=== PATIENT | male | born 1940 | race Caucasian/White ===

== ENCOUNTER 2022-08-19 10:51 | Outpatient (CLI) | payer MEDICARE, SELFPAY ==
[2022-08-19 14:20] LABS: Kit Draw Collected
== END 2022-08-19 10:52 | disposition home or self-care (01) ==
LOC: ANHGOSHLAB 10:53
PROVIDERS: PCP Family Medicine; Visit Provider Family Medicine
DX: I10 Essential (primary) hypertension (principal); R73.9 Hyperglycemia, unspecified
CPT/HCPCS: 36415

== ENCOUNTER 2023-02-24 10:15 | Outpatient (CLI) | payer MEDICARE, SELFPAY ==
[2023-02-24 18:38] LABS: Basophils Absolute Auto 0.1 K/mm3 (0.0-0.1); Eosinophils Absolute Auto 0.7 K/mm3 (0-0.3); Eosinophils Percent Auto 8.3 % (0-4.4); Hematocrit 41.4 % (42.0-52.0); Hemoglobin 13.1 g/dL (14.0-18.0); Immature Granulocyte Absolute 0.03 K/mm3 (0.00-0.031); Immature Granulocyte Percent A 0.4 % (0-0.5); Lymphocytes Absolute Auto 2.41 K/mm3 (0.9-3.2); Lymphocytes Percent Auto 30.7 % (18.3-44.2); Mean Corpuscular HGB Conc 31.6 g/dl (32-36); Mean Corpuscular Hemoglobin 31.6 pg (26-34); Mean Corpuscular Volume 99.8 fl (80-100); Mean Platelet Volume 9.4 fl (7.4-10.4); Monocytes Absolute Auto 0.7 K/mm3 (0.1-0.6); Neutrophils Percent Auto 50.6 % (45.5-73.1); Platelet Count Result 234 k/mm3 (150-375); Red Blood Count 4.15 M/mm3 (4.6-6.20); Red Cell Distribution Width 12.6 % (11.5-14.5); White Blood Count 7.9 K/mm3 (4.5-10.0)
[2023-02-24 19:14] LABS: Alanine Aminotransferase 18 U/L (6-50); Albumin Level 4.1 g/dL (3.5-5.1); Alkaline Phosphatase 75 U/L (38-126); Anion Gap 9 mmol/L (8-16); Aspartate Amino Transferase 39 U/L (17-59); Bilirubin,Total 0.8 mg/dL (0.2-1.3); Blood Urea Nitrogen 21 mg/dL (9-20); Calcium 8.8 mg/dL (8.4-10.2); Carbon Dioxide 30 mmol/L (22-30); Chloride 102 mmol/L (98-107); Cholesterol 157 mg/dL (0-200); Estimated Glomerular Filt Rate 45; Glucose 106 mg/dL (65-110); HDL Direct 38 mg/dL; Potassium 4.1 mmol/L (3.4-5.0); Sodium 141 mmol/L (137-145); Triglycerides 93 mg/dL (<150)
[2023-02-24 19:25] LABS: LDL Cholesterol Direct 91 mg/dL
[2023-02-24 19:44] LABS: Prostate Specific Antigen 3.2 ng/mL (< OR = 4.0)
[2023-02-24 20:11] LABS: Vitamin D 25 Hydroxy 53.7 ng/mL
[2023-02-24 20:46] LABS: Hemoglobin A1C 5.2 % (<5.7)
== END 2023-02-24 10:16 | disposition home or self-care (01) ==
LOC: ANHGOSHLAB 10:16
PROVIDERS: PCP Family Medicine; Visit Provider Family Medicine
DX: Z12.5 Encounter for screening for malignant neoplasm of prostate (principal); R73.9 Hyperglycemia, unspecified; E78.5 Hyperlipidemia, unspecified; E55.9 Vitamin D deficiency, unspecified; E53.8 Deficiency of other specified B group vitamins; I48.20 Chronic atrial fibrillation, unspecified; I10 Essential (primary) hypertension
CPT/HCPCS: 36415; 80053; 80061; 82306; 82607; 83036; 84153; 84443; 85025; G0103

== ENCOUNTER 2023-08-18 10:05 | Outpatient (CLI) | payer MEDICARE, SELFPAY ==
[2023-08-18 12:19] LABS: Basophils Absolute Auto 0.1 K/mm3 (0.0-0.1); Basophils Percent Auto 0.8 % (0.2-1.2); Eosinophils Absolute Auto 0.7 K/mm3 (0-0.3); Eosinophils Percent Auto 8.1 % (0-4.4); Hematocrit 42.7 % (42.0-52.0); Hemoglobin 13.4 g/dL (14.0-18.0); Immature Granulocyte Absolute 0.03 K/mm3 (0.00-0.031); Immature Granulocyte Percent A 0.4 % (0-0.5); Lymphocytes Absolute Auto 2.26 K/mm3 (0.9-3.2); Lymphocytes Percent Auto 27.2 % (18.3-44.2); Mean Corpuscular HGB Conc 31.4 g/dl (32-36); Mean Corpuscular Hemoglobin 31.2 pg (26-34); Mean Corpuscular Volume 99.3 fl (80-100); Mean Platelet Volume 9.3 fl (7.4-10.4); Monocytes Absolute Auto 0.8 K/mm3 (0.1-0.6); Neutrophils Absolute Auto 4.5 K/mm3 (1.3-6.7); Neutrophils Percent Auto 53.5 % (45.5-73.1); Platelet Count Result 234 k/mm3 (150-375); White Blood Count 8.3 K/mm3 (4.5-10.0)
[2023-08-18 12:29] LABS: Alanine Aminotransferase 14 U/L (6-50); Albumin Level 4.1 g/dL (3.5-5.1); Alkaline Phosphatase 88 U/L (38-126); Anion Gap 3 mmol/L (4-12); Aspartate Amino Transferase 61 U/L (17-59); Bilirubin,Total 0.9 mg/dL (0.2-1.3); Blood Urea Nitrogen 24 mg/dL (9-20); Calcium 9.4 mg/dL (8.4-10.2); Carbon Dioxide 32 mmol/L (22-30); Chloride 105 mmol/L (98-107); Estimated Glomerular Filt Rate 48; Glucose 100 mg/dL (65-110); Potassium 4.1 mmol/L (3.4-5.0); Sodium 140 mmol/L (137-145)
== END 2023-08-18 10:06 | disposition home or self-care (01) ==
LOC: ANHGOSHLAB 10:07
PROVIDERS: PCP Family Medicine; Visit Provider Family Medicine
DX: I50.32 Chronic diastolic (congestive) heart failure (principal); I48.20 Chronic atrial fibrillation, unspecified; E78.5 Hyperlipidemia, unspecified; I10 Essential (primary) hypertension; N18.31 Chronic kidney disease, stage 3a; Z79.899 Other long term (current) drug therapy
CPT/HCPCS: 36415; 80053; 85025

== ENCOUNTER 2024-02-29 13:46 | Outpatient (CLI) | payer MEDICARE, SELFPAY ==
[2024-02-29 19:25] LABS: Basophils Absolute Auto 0.1 K/mm3 (0.0-0.1); Basophils Percent Auto 0.7 % (0.2-1.2); Eosinophils Absolute Auto 0.6 K/mm3 (0-0.3); Eosinophils Percent Auto 5.8 % (0-4.4); Hematocrit 43.5 % (42.0-52.0); Hemoglobin 14.1 g/dL (14.0-18.0); Immature Granulocyte Absolute 0.02 K/mm3 (0.00-0.031); Immature Granulocyte Percent A 0.2 % (0-0.5); Lymphocytes Absolute Auto 2.66 K/mm3 (0.9-3.2); Lymphocytes Percent Auto 28.3 % (18.3-44.2); Mean Corpuscular HGB Conc 32.4 g/dl (32-36); Mean Corpuscular Volume 98.6 fl (80-100); Mean Platelet Volume 9.3 fl (7.4-10.4); Monocytes Absolute Auto 0.7 K/mm3 (0.1-0.6); Monocytes Percent Auto 7.9 % (2.6-8.5); Neutrophils Absolute Auto 5.4 K/mm3 (1.3-6.7); Neutrophils Percent Auto 57.1 % (45.5-73.1); Platelet Count Result 279 k/mm3 (150-375); Red Blood Count 4.41 M/mm3 (4.6-6.20); Red Cell Distribution Width 12.5 % (11.5-14.5); White Blood Count 9.4 K/mm3 (4.5-10.0)
[2024-02-29 20:00] LABS: Alanine Aminotransferase 15 U/L (6-50); Albumin Level 4.5 g/dL (3.5-5.1); Alkaline Phosphatase 90 U/L (38-126); Anion Gap 9 mmol/L (4-12); Aspartate Amino Transferase 37 U/L (17-59); Bilirubin,Total 0.8 mg/dL (0.2-1.3); Blood Urea Nitrogen 32 mg/dL (9-20); Calcium 9.8 mg/dL (8.4-10.2); Carbon Dioxide 27 mmol/L (22-30); Chloride 104 mmol/L (98-107); Cholesterol 153 mg/dL (0-200); Estimated Glomerular Filt Rate 41; Glucose 97 mg/dL (65-110); HDL Direct 37 mg/dL; Potassium 4.5 mmol/L (3.4-5.0); Sodium 140 mmol/L (137-145); Triglycerides 108 mg/dL (<150)
[2024-02-29 20:12] LABS: LDL Cholesterol Direct 75 mg/dL
[2024-02-29 20:29] LABS: Prostate Specific Antigen 4.8 ng/mL (< OR = 4.0)
== END 2024-02-29 13:47 | disposition home or self-care (01) ==
LOC: ANHGOSHLAB 13:47
PROVIDERS: PCP Family Medicine; Visit Provider Nurse Practitioner Family
DX: E78.5 Hyperlipidemia, unspecified (principal); I10 Essential (primary) hypertension; Z12.5 Encounter for screening for malignant neoplasm of prostate
CPT/HCPCS: 36415; 80053; 80061; 84153; 84443; 85025; G0103

== ENCOUNTER 2024-08-30 11:51 | Outpatient (CLI) | payer MEDICARE, SELFPAY ==
--- OUTSIDE RECORDS SUMMARY | 2024-08-30 13:10 | XMS_ITS | Referral Summary ---
Author Organization [facility] [place] [address] Address [address] [place] [address] Care Team Providers Care Cook Fish Eggs Name Role Phone Justino Sim MD Unavailable Miscellaneous, Not In File Unavailable Unava Kuldip Miller MD Primary Care Provider Encounters Date Type Department Care Team Description 06/05/2024 1:15 PM FISH BAILER Ancillary Procedure [facility] [address] [place] [id number] Biventricular ICD (implantable cardioverter-defibrill ator) in place (Primary Dx); Cardiomyopathy, dilated (HCC) from Last 3 Months Allergies No known active allergies Medications pravastatin (PRAVACHOL) 40 mg tablet take 1 tablet by oral route every day 0 0 5 Active multivitamin tabletIndications:Vi tamin Deficiency Prevention Take 1 tablet by mouth daily Active cholecalciferol (VITAMIN D-3) 2000 unit capsule 1 capsule (2,000 Units total) Active metoprolol tartrate (LOPRESSOR) 25 mg immediate release tabletIndications:Ch ronic atrial fibrillation (HCC) Take 0.5 tablets (12.5 mg total) by mouth 2 (two) times a day 90 tablet 3 4 Active sacubitriL-valsartan (Entresto) 49-51 mg tabletIndications:Ca rdiomyopathy, dilated (HCC) Take 1 tablet by mouth 2 (two) times a day 60 tablet 11 4 Active spironolactone (ALDACTONE) 25 mg tablet TAKE 1 TABLET BY MOUTH EVERY DAY 90 tablet 1 4 Active apixaban (Eliquis) 2.5 mg tabletIndications:Ch ronic anticoagulation TAKE 1 TABLET BY MOUTH TWICE A DAY 60 tablet 4 4 Active empagliflozin (JARDIANCE) 10 mg tablet Take 1 tablet (10 mg total) by mouth daily 90 tablet 6 5 Active Active Problems Problem Noted Date Diagnosed Date Biventricular ICD (implantab le cardioverter-defibrillator) in place 03/11/2022 Hypotension due to drugs 03/11/2022 At risk for sudden cardiac 11/03/2021 Chronic combined systolic an d diastolic CHF (congestive heart failure) 11/03/2021 Nonrheumatic mitral valve regurgitation 11/04/19 Stage 3a chronic kidney disease 11/28/2020 Bradycardia 02/12/2020 Aortic valve disease 02/12/2020 LBBB (left bundle branch block) 07/18/2019 S/P TAVR (transcatheter aortic valve replacement ) 07/17/2019 Cardiomyopathy, dilated (CMS/HCC) 07/17/2019 Aortic valve stenosis 11/30/2017 Overview (11/30/2017): Added automatically from request for surgery [id number] Persistent atrial fibrillation 11/30/2017 Overview (11/30/2017): Added automatically from request for surgery [id number] Obesity (BMI 30-39.9) 03/08/2017 Chronic anticoagulation 03/16/2016 Overview (08/20/2016): Chronic anticoagulation Obstructive sleep apnea syndrome 09/02/2015 Overview (08/20/2016): MICHAEL (obstructive sleep apnea) Multiple-type hyperlipidemia 03/01/2015 Overview (08/20/2016): Mixed hyperlipidemia Dyssomnia 03/01/2015 Overview (08/20/2016): Sleep disturbances Resolved Problems Problem Noted Date Diagnosed Date Resolved Date Nonrheumatic aortic valve stenosis 01/18/2018 11/13/2020 Nonrheumatic aortic valve stenosis 03/08/2017 03/08/2017 Sinusitis 03/16/2016 11/03/2021 Overview (08/20/2016): Allergic sinusitis Nonrheumatic aortic valve stenosis 03/01/2015 03/11/2022 Overview (08/20/2016): Nonrheumatic aortic valve stenosis Chronic atrial fibrillation 03/01/2015 09/03/2021 Overview (08/20/2016): Atrial fibrillation, chronic Morbid obesity 03/01/2015 03/08/2017 Overview (08/20/2016): Morbid obesity due to excess calories Immunizations Immunization Administration Dates Next Due Influenza, Trivalent, High D ose, Split, Preservative Free, Intramuscular 05/29/2018 Social History Tobacco Use Types Packs/Day Years Used Date Smoking Tobacco: Former Cigarettes Q uit: 03/08/1984 Smokeless Tobacco: Never Tobacco Cessation:Counseling Given: Not Answered Alcohol Use Standard Drinks/Week Comments No 0 (1 standard drink = 0.6 oz pur e alcohol) Sex and Gender Information Value Date Recorded Sex Assigned at Not on file Legal Sex Male 3:49 AM FISH BAILER Gender Identity Not on file Sexual Orientation Not on file Last Filed Vital Signs Vital Sign Reading Time Taken Comments Blood Pressure 104/58 05/24/2024 10:55 AM FISH BAILER Pulse 68 05/24/2024 10:55 AM FISH BAILER Temperature 36.3 C (97.3 F) 11/25/2021 11:00 AM CDT Respiratory Rate 16 11/19/2021 11:38 AM CDT Oxygen Saturation 96% 05/24/2024 10:55 AM FISH BAILER Inhaled Oxygen Concentration - - Weight 107.5 kg (237 lb) 05/24/2024 10:55 AM FISH BAILER Height 185.4 cm (6' 1 ) 05/24/2024 10:55 AM FISH BAILER Body Mass Index 31.27 05/24/2024 10:55 AM FISH BAILER Plan of Treatment Not on file Medical Devices Implanted Type Area Mender Hand Device Identifier Shelf Expiration Date Model / Serial / Lot [employer] Durata 7fr 65cm 2 Coil Df-4 True Bipolar Active Fixation 7120q/65 - [id number] - [id number] Implanted:Qty: 1 on 11/25/2021 by Arjun Allan MD at [facility] Lead [employer] [id number] 06/16/2024 7120Q/65 / [id number] / [employer] Quartet 5fr [id number] 4 Electrode Is-4 Connector Steerable Tip 1458q/ - [id number] - [id number] Implanted:Qty: 1 on 11/25/2021 by Arjun Allan MD at [facility] Lead [employer] [id number] 10/14/2024 1458Q/ / [id number] / Medtronic Inc Zyfhrpt-31-Pz Corevalve Evolut R Self Expand Multilevel Transcatheter 34mm Latex Free - [id number] - [id number] Implanted:Qty: 1 on 05/27/2018 by Justino Sim MD at [facility] Med[employer]onic Inc [id number] 10/05/2019 EVOLUTR -34 -US / [id number] / Daig Pelon/[employer] [id number] Angio-Seal Vip Bondek-Plus 8fr .038in 70cm Hemostatic Latex Free - [id number] Implanted:Qty: 1 on 05/27/2018 by Justino Sim MD at [facility] Daig Pelon/[employer] 11/13/2018 [id number] / / [id number] Daig Pelon/[employer] [id number] Angio-Seal Vip Bondek-Plus 6fr .035in 70cm Hemostatic Latex Free - [id number] Implanted:Qty: 1 on 05/27/2018 by Justino Sim MD at [facility] Daig Pelon/[employer] 02/13/2019 [id number] / / [id number] Sharp Vascular Defib Cardiac [id number] [id number] [place] Hf Df4 Is-4 Is-1 Cnctr [id number] - [id number] - [id number] Implanted:Qty: 1 on 11/25/2021 by Arjun Allan MD at [facility] [employer] Vascular [id number] 10/15/2023 C [id number] / [id number] / Procedures Procedure Name Priority Date/Time Associated Diagnosis Comments DEVICE CHECK - REMOTE Routine 06/05/2024 10:19 AM FISH BAILER Cardiomyopathy, dilated (HCC) from Last 3 Months Results * DEVICE CHECK - REMOTE (06/05/2024 10:19 AM FISH BAILER) Anatomical Region Laterality Modality Other Narrative 06/12/2024 7:55 AM FISH BAILER Table formatting from the original result was not included. BiV ICD CHECK (REMOTE) Patient ID: Daniel Villalobos is a 83 y.o. male. This patient received a Sharp BiV ICD. They had a routine remote transmission on 06/05/2024 Device implant indications: Nonischemic dilated cardiomyopathy Interrogation of the patient's device demonstrates the following: Presenting EGM: Bi V paced with trigger pacing @ 70 bpm Original Device Settings Right Ventricle Left Ventricle Sensitivity (mV) Auto mV N/A mV Pacing Outputs 1.875 V @ 0.5 ms 1.875 V @ 1.0 ms Testing Measurements Right Ventricle Left Ventricle Sensitivity (mV) Greater than 12 mV Not done mV Impedence (Ohms) 380 ohms 410 ohms Pace Threshold 0.875 V @ 0.5 ms 1.375 V @ 1.0 ms Pacing % 87 % 87 % HV Lead Impedance 43 ohms N/A Trigger pacing is at 13% for total Bi V pacing of 100% Battery Status: 4.6 years to KARTIK, charge time 9.1 seconds. Episodes last 90 days/Comments: There were no ventricular high rate episodes noted on today's remote interrogation. NORMAL DEVICE FUNCTION PROGRAMMED MEDICATIONS: Anti-coagulant(s): Eliquis 2.5 mg twice daily Anti-arrhythmic(s): Lopressor 12.5 mg twice daily PLAN: 1) Sharp BiV ICD evaluation 2) Sharp remote transmission scheduled in 3 months. 3) Programming appropriate for device settings Louie Alex, RN Blaine Husain III, MD CV CARDIAC SERVICES PROCEDURES Final Result from Last 3 Months Insurance AETNA MEDICARE GOLD MEDICARE RESEARCH AETNA MEDICARE [facility]OLD [facility] G[facility] AETNA MEDICARE GOLD Care Teams Cook Fish Eggs Relationship Specialty Start Date End Date Kuldip Aviles MD [facility] [address] [place] [address] PCP - General Family Practice 10/05/23 Justino Sim MD [address] [place] [address] Secretarial Teacher Cardiology 02/23/18 Miscellaneous, Not In File 11/25/21
--- OUTSIDE RECORDS SUMMARY | 2024-08-30 13:10 | XMS_ITS | Encounter Summary ---
Author Organization [facility] Address [address] [place] [address] Care Team Providers Care Fire Engine Operator Name Role Phone Justino Sim MD Unavailable Miscellaneous, Not In File Unavailable Unava ilable Kuldip Aviles MD Primary Care Provider Encounter Details Date Type Department Care Team (Late st Contact Info) Description 08/18/2023 Orders Only [facility] [place] Health Information Management [address] [place] [id number] Scanning, Provider Social History Tobacco Use Types Packs/Day Years Used Date Smoking Tobacco: Former Cigarettes Q uit: 03/08/1984 Smokeless Tobacco: Never Alcohol Use Standard Drinks/Week Comments No 0 (1 standard drink = 0.6 oz pur e alcohol) Sex and Gender Information Value Date Recorded Sex Assigned at Not on file Legal Sex Male 3:49 AM DATA OFFICER Gender Identity Not on file Sexual Orientation Not on file documented as of this encounter Plan of Treatment Not on file documented as of this encounter Procedures Procedure Name Priority Date/Time Associated Diagnosis Comments SCAN - LABS 08/18/2023 documented in this encounter Results * SCAN - LABS (08/18/2023) us Provider Scanning Final Result documented in this encounter Visit Diagnoses Not on filedocumented in this encounter Care Teams Fire Engine Operator Relationship Specialty Start Date End Date Kuldip Aviles MD [address] [facility] [address] [place] [address] PCP - General Family Practice 10/05/23 Justino Sim MD [address] [facility] [address] [place] [id number] City Administrator Cardiology 02/23/18 Miscellaneous, Not In File 11/25/21 documented as of this encounter
--- OUTSIDE RECORDS SUMMARY | 2024-08-30 13:10 | XMS_ITS | Encounter Summary ---
Author Organization [facility] Healthcare Address [address] [place] [address] Care Team Providers Care Call Center Nurse Name Role Phone Kody Bartholomew RN Unavailable Unavailab Justino Brandon MD Unavailable Miscellaneous, Not In File Unavailable Unava ilable Kuldip Aviles MD Primary Care Provider Encounter Details Date Type Department Care Team (Latest Contact Info) Description 03/02/2018 Documentation Cardiology Kody Bartholomew RN Social History Tobacco Use Types Packs/Day Years Used Date Smoking Tobacco: Former Cigarettes Q uit: 03/08/1984 Smokeless Tobacco: Never Alcohol Use Standard Drinks/Week Comments Yes 0 (1 standard drink = 0.6 oz pur e alcohol) occasionally Sex and Gender Information Value Date Recorded Sex Assigned at Not on file Legal Sex Male 3:49 AM CRITICAL POWER TECHNICIAN Gender Identity Not on file Sexual Orientation Not on file documented as of this encounter Plan of Treatment Not on file documented as of this encounter Visit Diagnoses Not on filedocumented in this encounter Care Teams Call Center Nurse Relationship Specialty Start Date End Date Kuldip Aviles MD [address] [facility] [address] [place] [address] PCP - General Family Practice 10/05/23 Kody Bartholomew, RN Secondary Supervisor Paper Products Cardiothoracic Surgery 10/22/17 11/25/21 Justino Sim MD [address] [facility] [address] [place] [address] Motion Picture Director Cardiology 02/23/18 Miscellaneous, Not In File 11/25/21 documented as of this encounter
--- OUTSIDE RECORDS SUMMARY | 2024-08-30 13:10 | XMS_ITS | Clinical Summary ---
Author Organization [facility] [place] [address] Address [address] [place] [address] Care Team Providers Care Temp Recruiter Name Role Phone Justino Sim MD Unavailable Miscellaneous, Not In File Unavailable Unava Kuldip Miller MD Primary Care Provider Allergies No known active allergies Medications pravastatin [...] failure) 11/03/2021 Nonrheumatic mitral valve regurgitation 11/04/19 22 Stage 3a chronic kidney disease 11/28/2020 Bradycardia 02/12/2020 Aortic valve disease 02/12/2020 LBBB (left bundle branch block) 07/18/2019 S/P TAVR (transcatheter aortic valve replacement ) 07/17/2019 Cardiomyopathy, dilated (CMS/HCC) 07/17/2019 Aortic valve stenosis 11/30/2017 Overview (11/30/2017): Added automatically from request for surgery [id number] Persistent atrial fibrillation 11/30/2017 Overview (11/30/2017): Added automatically from request for surgery [id number] Obesity (BMI 30-39.9) 03/08/2017 Chronic anticoagulation 03/16/2016 [...] (08/20/2016): Morbid obesity due to excess calories Encounters Date Type Department Care Team Description 06/05/2024 1:15 PM BIOCHEMICAL ENGINEER Ancillary Procedure Arrhythmia Center [facility] [address] [address] Biventricular ICD (implantable cardioverter-defibrill ator) in place (Primary Dx); Cardiomyopathy, dilated (HCC) from Last 3 Months Immunizations Immunization Administration Dates Next Due Influenza, Trivalent, High D ose, Split, Preservative Free, Intramuscular 05/29/2018 Surgical History Surgery Date Site/Laterality Comments HERNIA REPAIR X 2 VARICOSE VEIN SURGERY Bilateral EYE SURGERY Bilateral cataracts COLONOSCOPY TONSILLECTOMY BASAL CELL CARCINOMA EXCISION Right forearm Medical History Medical History Date Comments Sleep apnea Aortic valvar stenosis Atrial fibrillation (HCC) Cataract Arthritis Cancer (HCC) basal cell, righ t forearm Family History Medical History Relation Name Comments Lung cancer Brother 3 Cancer, lung; C ause of : Cancer, lung Heart attack Brother 4 Myocardial infa rction; Cause of : Myocardial infarction Other Father Unknown; Cause of : Unknown Heart attack Mother Myocardial infa rction; Cause of : Myocardial infarction Relation Name Status Comments Brother 1 (Age 65) Brother 2 (Age 70) Brother 3 Brother 4 Father (Age 92) Mother (Age 65) Social History Tobacco Use Types Packs/Day Years Used Date Smoking Tobacco: Former Cigarettes Q uit: 03/08/1984 Smokeless Tobacco: Never Tobacco Cessation:Counseling Given: Not Answered Alcohol Use Standard Drinks/Week Comments No 0 (1 standard drink = 0.6 oz pur e alcohol) Sex and Gender Information Value Date Recorded Sex Assigned at Not on file Legal Sex Male 3:49 AM BIOCHEMICAL ENGINEER Gender Identity Not on file Sexual Orientation Not on file Obstetrics History Last Filed Vital Signs Vital Sign Reading Time Taken Comments Blood Pressure 104/58 05/24/2024 10:55 AM BIOCHEMICAL ENGINEER Pulse 68 05/24/2024 10:55 AM BIOCHEMICAL ENGINEER Temperature 36.3 C (97.3 F) 11/25/2021 11:00 AM CDT Respiratory Rate 16 11/19/2021 11:38 AM CDT Oxygen Saturation 96% 05/24/2024 10:55 AM BIOCHEMICAL ENGINEER Inhaled Oxygen Concentration - - Weight 107.5 kg (237 lb) 05/24/2024 10:55 AM BIOCHEMICAL ENGINEER Height 185.4 cm (6' 1 ) 05/24/2024 10:55 AM BIOCHEMICAL ENGINEER Body Mass Index 31.27 05/24/2024 10:55 AM BIOCHEMICAL ENGINEER Plan of Treatment Health Maintenance Due Date Last Done Comments Depression Screening 1938 Hepatitis B Screening 1956 Zoster Vaccine (1 of 2) 1988 Well Visit 65+ 12/15/2003 Pneumococcal vaccine 65+ (2 of 2 - PCV) 01/24/2022 01/24/2021 Fall Risk Assessment 11/25/2022 11/25/2021 DTaP/Tdap/Td Vaccine (2 - Td or Tdap) 01/23/202412/2013 Influenza Vaccine Completed 01/24/2024, , 05/29/2018 Medical Devices Implanted Type Area Catalyst Concentration Operator Device Identifier Shelf Expiration Date Model / Serial / Lot [employer] Durata 7fr 65cm 2 Coil Df-4 True Bipolar Active Fixation 7120q/65 - [id number] - [id number] Implanted:Qty: 1 on 11/25/2021 by Arjun Allan MD at [facility] Lead [employer] [id number] 06/16/2024 7120Q/65 / [id number] / [employer] Quartet 5fr [id number] 4 Electrode Is-4 Connector Steerable Tip 1458q/86 - [id number] - [id number] Implanted:Qty: 1 on 11/25/2021 by Arjun Allan MD at [facility] Lead [employer] [id number] 10/14/2024 1458Q/86 / [id number] / Medtronic Inc Vtnwsfe-81-Mk Corevalve Evolut R Self Expand Multilevel Transcatheter 34mm Latex Free - [id number] - [id number] Implanted:Qty: 1 on 05/27/2018 by Justino Smi MD at [facility] Med[employer]onic Inc [id number] 10/05/2019 EVOLUTR -34 -US / [id number] / Daig Pelon/[employer] [id number] Angio-Seal Vip Bondek-Plus 8fr .038in 70cm Hemostatic Latex Free - [id number] Implanted:Qty: 1 on 05/27/2018 by Justino Sim MD at [facility] Daig Pelon/[employer] 11/13/2018 [id number] / / [id number] Daig Pelon/[employer] [id number] Angio-Seal Vip Bondek-Plus 6fr .035in 70cm Hemostatic Latex Free - [id number] Implanted:Qty: 1 on 05/27/2018 by Justino Sim MD at [facility] Daig Pelon/[employer] 02/13/2019 [id number] / / [id number] Sharp Vascular Defib Cardiac [id number] [place] Hf Df4 Is-4 Is-1 Cnctr [id number] - [id number] - [id number] Implanted:Qty: 1 on 11/25/2021 by Arjun Allan MD at [facility] [employer] [id number] 10/15/2023 C [id number] / [id number] / Procedures Procedure Name Priority Date/Time Associated Diagnosis Comments DEVICE CHECK - REMOTE Routine 06/05/2024 10:19 AM BIOCHEMICAL ENGINEER Cardiomyopathy, dilated (HCC) from Last 3 Months Results * DEVICE CHECK - REMOTE (06/05/2024 10:19 AM BIOCHEMICAL ENGINEER) Anatomical Region Laterality Modality Other Narrative 06/12/2024 7:55 AM BIOCHEMICAL ENGINEER Table formatting from the original result was [...] 3) Programming appropriate for device settings Louie Alex RN Blaine Husain III, MD CV CARDIAC SERVICES PROCEDURES Final Result from Last 3 Months Insurance AETNA MEDICARE GOLD MEDICARE RESEARCH AETNA MEDICARE GOLD [facility] AETNA MEDICARE GOLD AETNA MEDICARE GOLD Care Teams Temp Recruiter Relationship Specialty Start Date End Date Kuldip Aviles MD [address] [facility] [address] [place] [address] PCP - General Family Practice 10/05/23 Justino Sim MD [address] [facility] [address] [place] [address] Hotel Supplies Salesperson Cardiology 02/23/18 Miscellaneous, Not In File 11/25/21
--- OUTSIDE RECORDS SUMMARY | 2024-08-30 13:10 | XMS_ITS | Encounter Summary ---
Author Organization [facility] Address [address] [place] [address] Care Team Providers Care Mill Roll Rewinder Name Role Phone Jose Mireles Primary Care Provider [phone] Kody Bartholomew RN Unavailable Unavailab Justino Brandon MD Unavailable Miscellaneous, Not In File Unavailable Unava ilable Kuldip Aviles MD Primary Care Provider Encounter Details Date Type Department Care Team (Late st Contact Info) Description 08/24/2016 Orders Only [facility] ProviderAlethea MD [address] [place] [id number] Social History Tobacco Use Types Packs/Day Years Used Date Smoking Tobacco: Former Alcohol Use Standard Drinks/Week Comments Yes 0 (1 standard drink = 0.6 oz pur e alcohol) Sex and Gender Information Value Date Recorded Sex Assigned at Not on file Legal Sex Male 3:49 AM CORE BLOWER OPERATOR Gender Identity Not on file Sexual Orientation Not on file documented as of this encounter Plan of Treatment Not on file documented as of this encounter Procedures Procedure Name Priority Date/Time Associated Diagnosis Comments CARDIOLOGY REPORT 08/24/2016 documented in this encounter Results * CARDIOLOGY REPORT (08/24/2016) Anatomical Region Laterality Modality Other Narrative 08/24/2016 Ordered by an unspecified provider. Historical Provider CV CARDIAC SERVICES JERAMIE VILLALOBOS Final Result documented in this encounter Visit Diagnoses Not on filedocumented in this encounter Care Teams Mill Roll Rewinder Relationship Specialty Start Date End Date Jose Mireles [address] [place] [address] PCP - General 02/08/15 03/07/17 Kuldip Aviles MD [address] [facility] [address] [place] [address] PCP - General Family Practice 10/05/23 Kody Bartholomew, ASHLYN Secondary Avid Editor Cardiothoracic Surgery 10/22/17 11/25/21 Justino Sim MD [address] [address] Patient Flow Coordinator Cardiology 02/23/18 Miscellaneous, Not In File 11/25/21 documented as of this encounter
[2024-08-30 13:48] LABS: Vitamin D 25 Hydroxy 78.9 ng/mL
[2024-08-30 14:05] LABS: Alanine Aminotransferase 19 U/L (6-50); Albumin Level 4.2 g/dL (3.5-5.1); Alkaline Phosphatase 91 U/L (38-126); Anion Gap 7 mmol/L (4-12); Aspartate Amino Transferase 73 U/L (17-59); Bilirubin,Total 1.1 mg/dL (0.2-1.3); Blood Urea Nitrogen 30 mg/dL (9-20); Calcium 9.4 mg/dL (8.4-10.2); Carbon Dioxide 27 mmol/L (22-30); Chloride 107 mmol/L (98-107); Estimated Glomerular Filt Rate 39; Glucose 102 mg/dL (65-110); Magnesium 2.1 mg/dL (1.6-2.3); Potassium 4.9 mmol/L (3.4-5.0); Sodium 141 mmol/L (137-145)
[2024-08-30 14:32] LABS: Prostate Specific Antigen 4.5 ng/mL (< OR = 4.0)
== END 2024-08-30 11:52 | disposition home or self-care (01) ==
PROVIDERS: PCP Family Medicine; Visit Provider Family Medicine
DX: I11.0 Hypertensive heart disease with heart failure (principal); I50.32 Chronic diastolic (congestive) heart failure; R97.20 Elevated prostate specific antigen [PSA]; E55.9 Vitamin D deficiency, unspecified; Z12.5 Encounter for screening for malignant neoplasm of prostate
CPT/HCPCS: 36415; 80053; 82306; 83735; 84153; G0103

== ENCOUNTER 2025-03-28 11:30 | Outpatient (CLI) | payer MEDICARE, SELFPAY ==
--- OUTSIDE RECORDS SUMMARY | 2025-03-28 13:12 | XMS_ITS | Encounter Summary ---
Author Organization [facility] Address [address] [place] [address] Care Team Providers Care Electrical Tech/Project Manager Name Role Phone Kody Bartholomew RN Unavailable [...] on file Legal Sex Male 3:49 AM ON SITE COORDINATOR Gender Identity Not on file Sexual Orientation Not on file documented as of this encounter Plan of Treatment Not on file documented as of this encounter Visit Diagnoses Not on filedocumented in this encounter Care Teams Electrical Tech/Project Manager Relationship Specialty Start Date End Date Kuldip Aviles MD [address] [facility] 2 [place] [address] PCP - General Family Practice 10/05/23 Kody Bartholomew, RN Secondary Subject Scientific Research Cardiothoracic Surgery 10/22/17 11/25/21 Justino Sim MD [address] [facility] [address] [address] [place] [address] Gas Appliance Installer Cardiology 02/23/18 Miscellaneous, Not In File 11/25/21 documented as of this encounter
--- OUTSIDE RECORDS SUMMARY | 2025-03-28 13:12 | XMS_ITS | Clinical Summary ---
Author Organization [facility] [address] Address [address] [place] [address] Care Team Providers Care Drafter Castings Name Role Phone Justino Sim MD Unavailable Miscellaneous, Not In File Unavailable Unava Kuldip Miller MD Primary Care Provider Allergies No known active allergies Medications pravastatin (PRAVACHOL) 40 mg tablet take 1 tablet by oral route every day 0 0 03/01/20 15 Active multivitamin tabletIndications:V itamin Deficiency Prevention Take 1 tablet by mouth daily Active cholecalciferol (VITAMIN D-3) 2000 unit capsule 1 capsule (2,000 Units total) Active metoprolol tartrate (LOPRESSOR) 25 mg immediate release tabletIndications:C hronic atrial fibrillation (HCC) Take 0.5 tablets (12.5 mg total) by mouth 2 (two) times a day 90 tablet 3 12/23/19 24 Active empagliflozin (JARDIANCE) 10 mg tablet Take 1 tablet (10 mg total) by mouth daily 90 tablet 6 05/24/19 25 Active sacubitriL-valsarta n (Entresto) 49-51 mg tabletIndications:C ardiomyopathy, dilated (HCC) TAKE 1 TABLET BY MOUTH TWICE A DAY 60 tablet 4 12/26/19 25 Active apixaban (Eliquis) 2.5 mg tabletIndications:C hronic anticoagulation Take 1 tablet (2.5 mg total) by mouth 2 (two) times a day 60 tablet 5 02/17/20 25 Active spironolactone (ALDACTONE) 25 mg tablet TAKE 1 TABLET BY MOUTH EVERY DAY 90 tablet 03/27/20 25 Active spironolactone (ALDACTONE) 25 mg tablet TAKE 1 TABLET BY MOUTH EVERY DAY 90 tablet 1 10/05/19 25 025 Discontinued Active Problems Problem Noted Date Diagnosed Date [...] (11/30/2017): Added automatically from request for surgery [id number] Persistent atrial fibrillation 11/30/2017 Overview (11/30/2017): Added automatically from request for surgery [id number] Obesity (BMI 30-39.9) 03/08/2017 Chronic anticoagulation 03/16/2016 [...] Encounters Date Type Department Care Team Description 03/05/2025 10:05 AM CDT Ancillary Procedure [facility] [address], [place] [address] Biventricular ICD (implantable cardioverter-defibrill ator) in place (Primary Dx); Cardiomyopathy, dilated (HCC) 02/15/2025 Telephone [facility] Cardiology [address] [place] [address] Justino Sim MD Med Refill from Last 3 Months Immunizations Immunization Administration [...] on file 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 Gender Identity Not on file Sexual Orientation Not on file Last Filed Vital Signs Vital Sign Reading Time Taken Comments Blood Pressure 104/58 05/24/2024 10:55 AM PLASTERER HELPER Pulse 68 05/24/2024 10:55 AM PLASTERER HELPER Temperature 36.3 C (97.3 F) 11/25/2021 11:00 AM CDT Respiratory Rate 16 11/19/2021 11:38 AM CDT Oxygen Saturation 96% 05/24/2024 10:55 AM PLASTERER HELPER Inhaled Oxygen Concentration - - Weight 107.5 kg (237 lb) 05/24/2024 10:55 AM PLASTERER HELPER Height 185.4 cm (6' 1) 05/24/2024 10:55 AM PLASTERER HELPER Body Mass Index 31.27 05/24/2024 10:55 AM PLASTERER HELPER Plan of Treatment Health Maintenance Due Date Last Done Comments Depression Screening 1938 Hepatitis B Screening 1958 Zoster Vaccine (1 of 2) 1988 Well Visit 65+ 12/15/2003 Fall Risk Assessment 11/25/2022 11/25/2021 DTaP/Tdap/Td Vaccine (2 - Td or Tdap) 01/23/2024 01/22/2014 Influenza Vaccine (#1) 2025 , 01/24/2020, 02/22/2019, Additional history exists Pneumococcal vaccine 65+ Completed 01/24/2021, 01/2020 Medical Devices Implanted Type Area Stove Tender Device Identifier Shelf Expiration Date Model / Serial / Lot [employer] Durata 7fr 65cm 2 Coil Df-4 True Bipolar Active Fixation 7120q/65 - [id number] - [id number] Implanted:Qty: 1 on 11/25/2021 by Arjun Allan MD at [facility] Lead [employer] [id number] 06/16/2024 7120Q/65 / [id number] / [employer] Quartet 5fr 02ych17tz 4 Electrode Is-4 Connector Steerable Tip 1458q/86 - [id number] - [id number] Implanted:Qty: 1 on 11/25/2021 by Arjun Allan MD at [facility] Lead [employer] [id number] 10/14/2024 1458Q/86 / [id number] / Med[employer] Inc [id number] Corevalve Evolut R Self Expand Multilevel Transcatheter 34mm Latex Free - [id number] - [id number] Implanted:Qty: 1 on 05/27/2018 by Justino Sim MD at [facility] [employer] [id number] 10/05/2019 EVOLUTR -34 -US / [id number] / Daig Pelon/[employer] [id number] Angio-Seal Vip Bondek-Plus 8fr .038in 70cm Hemostatic Latex Free - [id number] Implanted:Qty: 1 on 05/27/2018 by Justino Sim MD at [facility] [employer] 11/13/2018 [id number] / / [id number] Daig Pelon/[employer] [id number] Angio-Seal Vip Bondek-Plus 6fr .035in 70cm Hemostatic Latex Free - [id number] Implanted:Qty: 1 on 05/27/2018 by Justino Sim MD at [facility] [employer] 02/13/2019 [id number] / / [id number] Sharp [employer] Defib Cardiac [id number] 37e63gr [place] Hf Df4 Is-4 Is-1 Cnctr [id number] - [id number] - [id number] Implanted:Qty: 1 on 11/25/2021 by Arjun Allan MD at [facility] [employer] [id number] 10/15/2023 C [id number] / [id number] / Procedures Procedure Name Priority Date/Time Associated Diagnosis Comments DEVICE CHECK - REMOTE Routine 03/05/2025 10:39 AM CDT Cardiomyopathy, dilated (HCC) from Last 3 Months Results * DEVICE CHECK - REMOTE (03/05/2025 10:39 AM CDT) Anatomical Region Laterality Modality Other Narrative 03/05/2025 4:06 PM CDT Table formatting from the original result was not included. BiV ICD CHECK (REMOTE) Patient ID: Daniel Villalobos is a 84 y.o. male. This patient received a Sharp BiV ICD. They had a routine remote transmission on 03/05/2025 Device implant indications: Dilated cardiomyopathy Interrogation of the patient's device demonstrates the following: Presenting EGM: Bi V pacing and trigger pacing @ 78-120 bpm Original Device Settings Right Ventricle Left Ventricle Sensitivity (mV) Auto mV N/a mV Pacing Outputs 2.0 V @ 0.5 ms 2.625 V @ 1.0 ms Testing Measurements Right Ventricle Left Ventricle Sensitivity (mV) 6.6 mV Not done mV Impedence (Ohms) 340 ohms 400 ohms Pace Threshold 1.0 V @ 0.5 ms 2.125 V @ 1.0 ms Pacing % 87 % 87 % HV Lead Impedance 38 ohms N/A Trigger pacing at 13% Battery Status: 3.8-4.1 years to KARTIK, charge time 9.1 seconds. Episodes last 90 days/Comments: 1 episode of nonsustained VT, no EGM available for review. NORMAL DEVICE FUNCTION PROGRAMMED MEDICATIONS: Anti-coagulant(s): Eliquis 2.5 mg twice a day Anti-arrhythmic(s): Lopressor 12.5 mg twice a day PLAN: 1) Sharp BiV ICD evaluation 2) Sharp remote transmission scheduled in 3 months. 3) Programming appropriate for device settings Renee Vieira RN Blaine Husain III, MD [facility] CARDIAC SERVICES PROCEDURES Final Result from Last 3 Months Insurance [employer] MEDICARE GOLD MEDICARE RESEARCH AETNA MEDICARE GOLD [facility] AETNA MEDICARE GOLD AET[employer] MEDICARE GOLD Care Teams Drafter Castings Relationship Specialty Start Date End Date Kuldip Aviles MD [address] [facility] [address] [place], [place] [id number] PCP - General Family Practice 10/05/23 Justino Sim MD [address], [address] [id number] Plastic Tool Maker Cardiology 02/23/18 Miscellaneous, Not In File 11/25/21
--- OUTSIDE RECORDS SUMMARY | 2025-03-28 13:12 | XMS_ITS | Encounter Summary ---
Author Organization [facility] Healthcare Address [address] [place] [address] Care Team Providers Care Pet Care Attendant Name Role Phone Kody Bartholomew RN Unavailable Unavailab Justino Brandon MD Unavailable Miscellaneous, Not In File Unavailable Unava ilable Kuldip Aviles MD Primary Care Provider Encounter Details Date Type Department Care Team (Late st Contact Info) Description 09/21/2017 Orders Only [facility] Health Information Management [address] [place] [id number] Scanning, Provider Social History Tobacco Use Types Packs/Day Years Used Date Smoking Tobacco: Former Cigarettes Q uit: 03/08/1984 Smokeless Tobacco: Never Alcohol Use Standard Drinks/Week Comments Yes 2 (1 standard drink = 0.6 oz pur e alcohol) occassionally Sex and Gender Information Value Date Recorded Sex Assigned at Not on file 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 Gender Identity Not on file Sexual Orientation Not on file documented as of this encounter Plan of Treatment Not on file documented as of this encounter Procedures Procedure Name Priority Date/Time Associated Diagnosis Comments CARDIOLOGY DOCUMENT SCAN 09/21/2017 documented in this encounter Results * Cardiology Document Scan (09/21/2017) Anatomical Region Laterality Modality Other us Provider Scanning CV CARDIAC SERVICES PROCEDURES Final Result documented in this encounter Visit Diagnoses Not on filedocumented in this encounter Care Teams Pet Care Attendant Relationship Specialty Start Date End Date Kuldip Aviles MD [address] [facility] [address] [place] [address] PCP - General Family Practice 10/05/23 Kody Bartholomew, RN Secondary Grain Inspector Cardiothoracic Surgery 10/22/17 11/25/21 Justino Sim MD [address] [address] [place] [address] Residential Program Manager Cardiology 02/23/18 Miscellaneous, Not In File 11/25/21 documented as of this encounter
--- OUTSIDE RECORDS SUMMARY | 2025-03-28 13:12 | XMS_ITS | Encounter Summary ---
Author Organization [facility] Address [address] [facility] [address] [place] [address] Care Team Providers Care Pumper Helper Name Role Phone Jose Mireles Primary Care Provider [phone] Kody Bartholomew RN Unavailable Unavailab Justino Brandon MD Unavailable Miscellaneous, Not In File Unavailable Unava ilable Kuldip Aviles MD Primary Care Provider Encounter Details Date Type Department Care Team (Late st Contact Info) Description 08/24/2016 Orders Only [facility] ProviderAlethea MD [address] [place] [id number] Social History Tobacco Use Types Packs/Day Years Used Date Smoking Tobacco: Former Alcohol Use Standard Drinks/Week Comments Yes 0 (1 standard drink = 0.6 oz pur e alcohol) Sex and Gender Information Value Date Recorded Sex Assigned at Not on file 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 Gender Identity Not on file Sexual [...] on filedocumented in this encounter Care Teams Pumper Helper Relationship Specialty Start Date End Date Jose Mireles [address] [place] [address] PCP - General 02/08/15 03/07/17 Kuldip Aviles MD [address] [facility] [address] [place] [address] PCP - General Family Practice 10/05/23 Kody Bartholomew, ASHLYN Secondary Assistant Dean Of Students Cardiothoracic Surgery 10/22/17 11/25/21 Justino Sim MD [address] [place] [address] Order Builder Loader Cardiology 02/23/18 Miscellaneous, Not In File 11/25/21 documented as of this encounter
[2025-03-28 13:13] LABS: Hematocrit 42.8 % (42.0-52.0); Hemoglobin 13.5 g/dL (14.0-18.0); Immature Granulocyte Percent A 0.3 % (0-0.5); Lymphocytes Absolute Auto 2.68 K/mm3 (0.9-3.2); Mean Corpuscular HGB Conc 31.5 g/dl (32-36); Mean Corpuscular Hemoglobin 31.5 pg (26-34); Mean Corpuscular Volume 100.0 fl (80-100); Nucleated Red Blood Cells Absolute Auto 0.000 K/mm3 (0.0-0.012); Nucleated Red Blood Cells Perc 0.0 % (0.0-0.2); Platelet Count Result 244 k/mm3 (150-375); Red Blood Count 4.28 M/mm3 (4.6-6.20); White Blood Count 9.6 K/mm3 (4.5-10.0)
[2025-03-28 13:19] LABS: Alanine Aminotransferase 14 U/L (6-50); Albumin Level 4.4 g/dL (3.5-5.1); Alkaline Phosphatase 83 U/L (38-126); Anion Gap 10 mmol/L (4-12); Aspartate Amino Transferase 46 U/L (17-59); Bilirubin,Total 1.0 mg/dL (0.2-1.3); Blood Urea Nitrogen 24 mg/dL (9-20); Calcium 9.6 mg/dL (8.4-10.2); Carbon Dioxide 27 mmol/L (22-30); Chloride 107 mmol/L (98-107); Cholesterol 151 mg/dL (0-200); Estimated Glomerular Filt Rate 40; Glucose 100 mg/dL (65-110); HDL Direct 44 mg/dL; Magnesium 2.1 mg/dL (1.6-2.3); Potassium 4.3 mmol/L (3.4-5.0); Sodium 144 mmol/L (137-145); Total Protein 7.8 g/dL (6.3-8.2); Triglycerides 79 mg/dL (<150)
[2025-03-28 13:49] LABS: Thyroid Stimulating Hormone Reflex 1.480 uIU/mL (0.465-4.68)
[2025-03-28 13:56] LABS: Prostate Specific Antigen 4.1 ng/mL (< OR = 4.0)
[2025-03-28 14:00] LABS: Hemoglobin A1C 5.4 % (<5.7)
[2025-03-28 14:15] LABS: Vitamin B12 669.0 pg/mL (239-931)
== END 2025-03-28 11:31 | disposition home or self-care (01) ==
LOC: ANHGOSHLAB 11:30
PROVIDERS: PCP Family Medicine; Visit Provider Family Medicine
DX: Z12.5 Encounter for screening for malignant neoplasm of prostate (principal); R97.20 Elevated prostate specific antigen [PSA]; E78.5 Hyperlipidemia, unspecified; I11.0 Hypertensive heart disease with heart failure; I50.32 Chronic diastolic (congestive) heart failure; E55.9 Vitamin D deficiency, unspecified; R73.9 Hyperglycemia, unspecified; E53.8 Deficiency of other specified B group vitamins
CPT/HCPCS: 36415; 80053; 80061; 82306; 82607; 83036; 83735; 84153; 84443; 85025; G0103